=== PATIENT | female | born 1975 | race Caucasian/White ===

== ENCOUNTER 2025-02-12 17:04 | Outpatient (CLI) | payer OTHER, SELFPAY ==
--- NOTE | 2025-02-12 17:20 | CRLHL7_ITS ---
For Patients: As a result of the Cures Act, medical imaging exams and procedure reports are released immediately into your electronic medical record. You may view this report before your referring provider. If you have questions, please contact your health care provider. INDICATION: BILATERAL SCREENING MAMMOGRAM, ASYMPTOMATIC 49 Y/O FEMALE COMPARISON: 09/01/2022 TECHNIQUE: Digital mammogram in CC and MLO projections including computer-aided detection (CAD) and tomosynthesis. BREAST COMPOSITION: There are scattered areas of fibroglandular density. FINDINGS: No suspicious findings. ASSESSMENT: BI-RADS 1 Negative RECOMMENDATION: Annual screening mammogram. A lay language report of this examination will be provided to the patient. Dictated by: Anthony Jackson MD @ 02/15/2025 09:20:22 (Electronically Signed)
--- OUTSIDE RECORDS SUMMARY | 2025-02-13 00:48 | XMS_ITS | Encounter Summary ---
Author Organization [facility] Address [address] [place] [address]. [place] [address] Care Team Providers Care Desk Monitor Name Role Phone Coming Ivelisse Acuna MD Primary Care Provid er Coming Ivelisse Acuna MD Unavailable [phone]- [phone] Wilbert Peña MD Unavailable Encounter Details Date Type Department Care Team (Late st Contact Info) Description 08/09/2023 [facility] [address] [address] [place] Social History Tobacco Use Types Packs/Day Years Used Date Smoking Tobacco: Never Smokeless Tobacco: Never Alcohol Use Standard Drinks/Week Comments Yes 0 (1 standard drink = 0.6 oz pur e alcohol) occa Social Connection and Isolat ion Panel [NHANES] Answer Date Recorded In a typical week, how many times do you talk on the phone with family, friends, or neighbors? More than three times a week 08/25/2022 How often do you get togethe r with friends or relatives? Once a week 08/25/2022 How often do you attend chur ch or latter-day services? Never 08/25/2022 Do you belong to any clubs o r organizations such as sikh groups, unions, fraternal or athletic groups, or school groups? Yes 08/25/2022 Attends Club or Organization Meetings Not on jannette e 08/25/2022 Are you , , di vorced, , never , or living with a partner? 08/25/2022 AUDIT-C Answer Date Recorded Q1: How often do you have a drink containing alc ohol? Monthly or less 08/25/2022 Q2: How many drinks containi ng alcohol do you have on a typical day when you are drinking? 1 or 2 08/25/2022 Q3: How often do you have si x or more drinks on one occasion? Never 08/25/2022 Overall Financial Resource Strain (CARDIA) Answe r Date Recorded How hard is it for you to pa y for the very basics like food, housing, medical care, and heating? Not hard at all 08/25/2022 PHQ-2 Answer Date Recorded PHQ-2 Score 0 08/02/2023 [facility] - Occupational Stress Questionnaire Answer Date Recorded Do you feel stress - tense, restless, nervous, or anxious, or unable to sleep at night because your mind is troubled all the time - these days? Only a little 08/25/2022 Exercise Vital Sign Answer Date Recorde d On average, how many days pe r week do you engage in moderate to strenuous exercise (like a brisk walk)? 0 days 08/25/2022 On average, how many minutes do you engage in exercise at this level? 0 min 08/25/2022 Hunger Vital Sign Answer Date Recorded Within the past 12 months, y ou worried that your food would run out before you got the money to buy more. Never true 08/25/19 23 Within the past 12 months, t he food you bought just didn't last and you didn't have money to get more. Never true 08/25/2022 PRAPARE - Transportation Answer Date Re corded In the past 12 months, has l ack of transportation kept you from medical appointments or from getting medications? No 11/2022 In the past 12 months, has l ack of transportation kept you from meetings, work, or from getting things needed for daily living? No 08/25/2022 Housing Stability Vital Sign Answer Saul e Recorded In the last 12 months, was t here a time when you were not able to pay the mortgage or rent on time? No 08/25/2022 Number of Places Lived in the Last Year Not on f ile 08/25/2022 In the last 12 months, was t here a time when you did not have a steady place to sleep or slept in a senior care (including now)? 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
--- OUTSIDE RECORDS SUMMARY | 2025-02-13 00:48 | XMS_ITS | Encounter Summary ---
Author Organization [facility] Address [address] [place] [address]. [place] [address] Care Team Providers Care Signal Integrity Engineer Name Role Phone Coming Ivelisse Acuna MD Primary Care Provid er Coming Ivelisse Acuna MD Unavailable [phone] Wilbert Peña MD Unavailable Encounter Details Date Type Department Care Team (Late st Contact Info) Description 06/04/2024 [facility] Medical Advice Initial Department [place] [facility] Social History Tobacco Use Types Packs/Day Years [...] often do you attend chur ch or congregation services? Never 08/25/2022 Do you belong to any clubs o r organizations such as druze groups, unions, fraternal or athletic groups, or [...] Answer Date Recorded PHQ-2 Score 0 08/02/2023 [facility] - Occupational Stress [...] place to sleep or slept in a [facility] (including now)? 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
--- OUTSIDE RECORDS SUMMARY | 2025-02-13 00:48 | XMS_ITS | Encounter Summary ---
Author Organization [facility] Address [address] [place] [address]. [place] [address] Care Team Providers Care Communications Representative Name Role Phone Coming Ivelisse Acuna MD Primary Care Provid er Coming Ivelisse Acuna MD Unavailable [phone]- [phone] Wilbert Peña MD Unavailable Encounter Details Date [...] often do you attend chur ch or moravian services? Never 08/25/2022 Do you belong to any clubs o r organizations such as faith groups, unions, fraternal or athletic groups, or [...] place to sleep or slept in a jail (including now)? 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
--- OUTSIDE RECORDS SUMMARY | 2025-02-13 00:48 | XMS_ITS | Clinical Summary ---
Author Organization [facility] Address Formerly [facility] [place] [address] Care Team Providers Care Hardscape Foreman Name Role Phone Olivia Schwarz MD Primary Care Provider [phone]- [phone] Allergies Active Allergy Reactions Criticality Noted Date Comments Kiwi Laryngospasm 03/10/2010 Medications multivitamin (MVI) tablet Take 1 Tablet by mouth once daily. 0 06/22/2021 Active meclizine (ANTIVERT) 25 mg tabletIndication s:Motion sickness, sequela TAKE 1/2 TO 1 TABLET BY MOUTH THREE TIMES A DAY NEEDED FOR MOTION SICKNESS. 15 tablet. 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 Immunizations Immunization Administration Dates Next Due COVID-19 vaccine (IntroMaps NTech 30mcg/0.3mL) RACHNA CROSS 06/22/2021,12/04/2020,11/13/2020 DT (Age < 7 years) 01/11/2005 Influenza Intradermal PF 18-64 yrs 06/19/2012, Influenza, IIV3 (Age >=3 years) 07/04/2014 Influenza, IIV4 09/01/2022,,06/05/2019,2016 Influenza, IIV4 (=>6mos) MDV 06/23/2020,06/27/20 18 Td (Age >=7 Years) 06/22/2021 Tdap 08/11/2010 Tuberculin (PPD) 04/12/2003 Family History Medical History Relation Name Comments Diabetes Father Heart Disease Father Hypertension Father Heart Disease Maternal Grandfather Diabetes Mother Relation Name Status Comments Father Maternal Grandfather Mother Alive Social History Tobacco Use Types Packs/Day Years Used Date Smoking Tobacco: Never Smokeless Tobacco: Never Tobacco Cessation:Counseling Given: Yes Alcohol Use Standard Drinks/Week Comments Yes 6.7 (1 standard drink = 0.6 oz p ure alcohol) 2-3 drinks per month PHQ-2 Answer Date Recorded PHQ-2 TOTAL SCORE 0 12/10/2020 Social Connections Answer Date Recorded Frequency of Communication with Friends and Fami ly Not on file 08/16/2023 Financial Resource Strain Answer Date R ecorded Difficulty of Paying Living Expenses 3 08/12/2022 Difficulty of Paying Living Expenses Not on file 08/12/2022 Food Insecurity Answer Date Recorded Worried About Running Out of Food in the Last Ye ar 1 08/12/2022 Transportation Needs Answer Date Record ed Lack of Transportation (Medical) 1 08/12/2022 Housing Stability Answer Date Recorded Unable to Pay for Housing in the Last Year 1 08/12/2022 Comments No Sex and Gender Information Value Date Recorded Sex Assigned at Female 11/12/2020 10:25 AM CDT Legal Sex Female 5:42 AM 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 OPERATOR Gender Identity Female 11/12/2020 10:25 AM CDT Sexual Orientation Straight 11/12/2020 10 :25 AM CDT 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 Not on file Not o n file Obstetrics History Para Term AB IAB SAB Ectopic Multiple Livin g Live Births 1 1 1 Date Outcome GA Total Labor Labor/2nd/3rd Weight Sex Type Anes PTL Anu A1 A5 Name Clin Term Last Filed Vital Signs Vital Sign Reading Time Taken Comments Blood Pressure 132/88 08/12/2022 1:53 PM 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 OPERATOR Pulse 96 08/12/2022 1:53 PM 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 OPERATOR Temperature 36.6 C (97.8 F) 06/16/2022 2:40 PM CDT Respiratory Rate 16 06/16/2022 2:40 PM CDT Oxygen Saturation 99% 08/12/2022 1:53 PM 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 OPERATOR Inhaled Oxygen Concentration - - Weight 119.9 kg (264 lb 6.4 oz) 08/12/2022 1:53 PM 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 OPERATOR Height 164 cm (5' 4.57) 08/12/2022 1:53 PM 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 OPERATOR Body Mass Index 44.59 08/12/2022 1:53 PM 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 OPERATOR Plan of Treatment Health Maintenance Due Date Last Done Comments HIV for age 15-65 1991 Hepatitis C screening for age 18-79 1994 Hepatitis B series for 19+ (1 of 3 - 19+ 3-dose series) 1995 Colonoscopy through age 75 2021 Mammogram for age 45-75 2021 03/23/2017 Depression screening for age 12+ 12/10/2021 12/10/2020, 06/05/2019, 11/22/2018, Additional history exists Pap test for age 21-65 06/05/2022 9, 06/05/2019, 08/04/2016, Additional history exists BMI (ht and wt on same day) for age 18+ 08/12/2023 08/12/2022, 06/22/2021, 12/10/2020, Additional history exists COVID-19 vaccine series ( season) 2024 09/01/2022, 06/22/2021, 12/04/2020, Additional history exists Influenza Vaccine (Season Ended) 2025 09/01/2022, 05/31/2021, 06/23/2020, Additional history exists Lipids for age 45-75 04/29/2027 04/29/2022, 09/03/2016, 09/12/2013, Additional history exists Tetanus booster 06/22/2031 06/22/2021, 08/11/2010 Tdap Completed 08/11/2010 Pneumococcal series for age 6-49 Aged Out No longer eligible based on patient's age to complete this topic Procedures Procedure Name Priority Date/Time Associated Diagnosis Comments LIPID PANEL W REFLEX MEASURED LDL Routine 04/29/2022 4:04 PM CDT Screening for lipid disorders MUCK MINER BLASTING THIN PREP PAP SCREEN IMAGED Routine 06/05/2019 4:30 PM CDT Cervical cancer screening XR MAMMO BILAT SCREENING Routine 03/23/2017 11:19 AM CDT Visit for screening mammogram from Last 3 Months or Most Recently Relevant to Health Maintenance Results * LIPID PANEL W REFLEX MEASURED LDL [[id number]] (04/29/2022 4:04 PM CDT) CHOLESTEROL,TOTAL 179 100 - 199 mg/dL 04/30/2022 6:01 PM CDT [facility] TR[facility] LAB[facility] TRIGLYCERIDES 69 <150 mg/dL 04/30/2022 6:01 PM CDT [facility] HDL CHOLESTEROL 46 >40 mg/dL 6:01 PM CDT [facility] NON-HDL CHOLESTEROL 133 <145 mg/dl 04/30/2022 6:01 PM CDT [facility] CHOL/HDL RATIO 3.89 <4.50 04/30/2022 6:01 PM CDT [facility] LDL CHOLESTEROL 119 <=130 mg/dL 04/30/2022 6:01 PM CDT [facility] VLDL CHOLESTEROL 14 <=30 mg/dL 04/30/2022 6:01 PM CDT [facility] TR[facility] PROVIDER ORDERED STATUS RANDOM 04/30/2022 6:01 PM CDT [facility] Blood BLOOD SPECIMEN / Unknown Venipuncture / Unknown 04/29/2022 4:04 PM CDT 04/29/2022 4:05 PM CDT us Adei Abhilashra DO CHEMISTRY Final Result [facility] [address] [place] [address], [place] * MUCK MINER BLASTING THIN PREP PAP SCREEN IMAGED (06/05/2019 4:30 PM CDT) Case Report Gynecologic Cytology Report Case: [id number] Authorizing Provider: Anthony Low MD Collected: 06/05/2019 1630 Ordering Location: [facility] Received: 06/05/2019 1654 Clinic First Screen: Jorge Montoya Specimen: MUCK MINER BLASTING ThinPrep Vial Screening, Cervical 06/16/2019 10:59 AM CDT [facility] INTERPRETATION/ RESULT NEGATIVE FOR INTRAEPITHELIAL LESION OR MALIGNANCY (NIL) (none) 06/16/2019 10:59 AM CDT [facility] [employer] [facility] EN[facility] LAB[facility]ORY at 1059 CDT SPECIMEN ADEQUACY Satisfactory for evaluation No endocervical component seen 06/16/2019 10:59 AM CDT [facility] [employer] [facility] LAB[facility] HPV REQUEST HPV if ASCUS 06/16/2019 10:59 AM CDT [facility] Date of LMP 05/26/2019 06/16/2019 10:59 AM CDT [facility] [employer] [facility] Last Pap Date 08/04/16 06/16/2019 10:59 AM CDT [facility] ENTRAL LAB[facility] Last Pap Result NIL 9 10:59 AM CDT [facility] [employer] [facility] ENTRAL LAB[facility]ATORY Abnormal Pap or [place] Bx in last 5 years No 06/16/2019 10:59 AM CDT [facility] [employer] [facility] EN[facility]AL LAB[facility]ORY Menstrual Status Regular Periods 06/16/2019 10:59 AM CDT [facility] [employer] [facility] [place] Bx Done Today No 06/16/2019 10:59 AM CDT [facility] [employer] [facility] Additional Information None given 06/16/2019 10:59 AM CDT [facility] [employer] [facility] ENTRAL LAB[facility]ORY Automated Review Successful 06/16/2019 10:59 AM CDT [facility] [employer] [facility] ENTRAL LAB[facility]ORY Comment:Specimen processed s uccessfully by automated wheel tuner device, ThinPrep Imaging System, [employer] Note The pap test is a screening technique, not a diagnostic procedure. It is used primarily to screen for squamous cancers and precursor lesions. Published studies have shown that it is subject to both false negative and false positive results. The pap test should not be used as the sole means to diagnose or exclude pre-malignant and malignant lesions. Cytology is screened and interpreted at [facility] - [address], [place] [address] and [facility] - [address]; [place] [address] and [facility] - [address]; [place] [address] and [facility] [address]; [place] [address] 06/16/2019 10:59 AM CDT [facility] ENTRAL LABORATORY Other (Cervical) Non-Blood / Unknown 06/05/2019 4:30 PM CDT 06/05/2019 4:54 PM CDT Anthony Low MD PATHOLOGY/CYTOLOGY Final R esult Performing Organization Address City/State/[facility] Co de Phone Number [facility] [address] [place] [address], [place] * XR MAMMO BILAT SCREENING (03/23/2017 11:19 AM CDT) Anatomical Region Laterality Modality BREASTS, Breast Left, Breast Right Bilateral Mammography Impressions 03/23/2017 12:39 PM CDT There is no radiographic evidence for malignancy. Recommend annual mammograms. A lay language report of this examination will be provided to the patient. MAMMOGRAM ASSESSMENT: ACR 1 Negative Narrative 03/23/2017 12:39 PM CDT XR MAMMO BILAT SCREENING [[id number]] CLINICAL HISTORY: This is an asymptomatic 41 y.o. patient. INDICATION FOR EXAM: Mammogram Screening. TECHNIQUE: CC & MLO views were obtained. This digital study was evaluated with the assistance of Computer-Aided Detection. COMPARISON FILM: This is a baseline study. FINDINGS: Mammographically, the breast tissue has scattered fibroglandular densities. There are no dominant masses, suspicious micro calcifications or areas of architectural distortion. us Anthony Low MD MAMMO Final Resu lt from Last 3 Months or Most Recently Relevant to Health Maintenance Care Teams Hardscape Foreman Relationship Specialty Start Date End Date Olivia Schwarz MD [address] [place] [address] PCP - General Family Practice 12/10/20
--- OUTSIDE RECORDS SUMMARY | 2025-02-13 00:48 | XMS_ITS | Clinical Summary ---
Author Organization [facility] Address [address] [place] [address] Care Team Providers Care Mechanical Designer Name Role Phone Ivelisse Ambriz MD Primary Care Provid er Ivelisse Ambriz MD Unavailable +1- [phone] Allergies Active Allergy Reactions Criticality Noted Date Comments Kiwi Itching,Rash Medium 09/01/2022 Rash on throat and tongue Medications Vitamin D, Cholecalciferol, 25 MCG (1000 UT) TABS Active meclizine (ANTIVERT) 25 MG tabletIndication s:H/O motion sickness Take 1 tablet (25 mg) by mouth 3 times daily as needed for dizziness, nausea or other (motion sickness). 30 tablet 1 05/15/2024 Active Active Problems Problem Noted Date Diagnosed Date ANDREA (obstructive sleep apnea)- moderate (AHI 24) 01/10/2023 Overview (01/10/2023): Home Sleep Apnea Testing - 10/18/22: 265 lbs: AHI 24/hr. AHI was 32 per hour supine, 11 per hour prone, 16 per hour on left side, and 7 per hour on right side. Oxygen Marquis of 79%. Baseline 96%. Sp02 =< 88% for 4 minutes. She slept on her back (50%), prone (2%), left (11%) and right (19%) sides. 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 Plan: Pap/HPV due 05/202209/01/22 NIL pap, neg HPV. Plan cotest in 3 years. *After excision or ablation for MICHAEL 2+, cotest in 6 months, then cotest annually x 3, then cotest every 3 years for at least 25 years. As cervical cancer risk remains above general population levels, continued screening for as long as the pt remains in good health is acceptable. (2019 ASCCP guideline). Any abnormal pap or + HR HPV test within the 25 years warrants a colposcopy.* (2019 ASCCP advisor answer). 2019 ASCCP guidelines Page 104 bullet 8: New evidence indicates that risk remains elevated for at least 25 years, with no evidence that treated patients ever returnto risk levels compatible with 5-year intervals. Morbid obesity 09/01/2022 Immunizations Immunization Administration Dates Next Due COVID-19 Bivalent 12+ (Pfizer) 09/01/2022 COVID-19 MONOVALENT 12+ (Pfizer) 06/22/2021,11/20,11/13/2020 DT (PEDS <7y) 01/11/2005 Influenza (IIV3) PF 07/04/2014 Influenza (intradermal) 06/19/2012,06/03/2011 Influenza Vaccine >6 months,quad, PF 06/2023,05/31/2021,06/05/2019,2016 Influenza Vaccine, 6+MO IM (QUADRIVALENT W/PRESERVATIVES) 06/23/2020,06/27/2018 Mantoux Tuberculin Skin Test 04/12/2003 TDAP (Adacel,Boostrix) 08/11/2010 Td (Adult), Adsorbed 06/22/2021 Family History Medical History Relation Comments Anxiety Disorder Father Diabetes Father Hyperlipidemia Father Hypertension Father Obesity Father Substance Abuse Father Asthma Mother Diabetes Mother Hyperlipidemia Mother Hypertension Mother Obesity Mother Thyroid Disease Mother Colon Cancer No family hx of Relation Status Comments Father Mother Social History Tobacco Use Types Packs/Day Years Used Date Smoking Tobacco: Never Smokeless Tobacco: Never Tobacco Cessation:Counseling Given: Not Answered Alcohol Use Standard Drinks/Week Comments Yes 0 [...] often do you attend chur ch or restorationism services? 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 Not on file Not on file Last Filed Vital Signs Vital Sign Reading Time Taken Comments Blood Pressure 117/74 08/02/2023 10:09 AM TENNIS BALL COVERER HAND Pulse 82 08/02/2023 10:09 AM TENNIS BALL COVERER HAND Temperature 36.7 C (98 F) 03/16/2023 10:16 AM CDT Respiratory Rate 16 03/16/2023 10:16 AM CDT Oxygen Saturation 98% 03/16/2023 10:16 AM CDT Inhaled Oxygen Concentration - - Weight 108 kg (238 lb) 08/02/2023 10:09 AM TENNIS BALL COVERER HAND Height 160 cm (5' 3) 08/02/2023 10:09 AM TENNIS BALL COVERER HAND Body Mass Index 42.16 08/02/2023 10:09 AM TENNIS BALL COVERER HAND Plan of Treatment Health Maintenance Due Date Last Done Comments CT COLONOGRAPHY 1975 DIABETES SCREENING 1975 FIT 1975 FLEX SIG 1975 sDNA (Cologuard) 1976 HIV SCREENING 1991 HEPATITIS C SCREENING 1994 HEPATITIS B VACCINE (1 of 3 - 19+ 3-dose series) 1995 LIPID 2016 ANNUAL REVIEW OF HM ORDERS 09/01/2023 09/01/2022 YEARLY PREVENTIVE VISIT 09/01/2023 09/01/2022, 06/22 COVID-19 VACCINE ( season) 2024 09/01/2022, 06/22/2021, 12/04/2020, Additional history exists PHQ-2 (once per calendar year) 2024 08/02/2023, 01/10/2023, 09/01/2022 MAMMO SCREENING 09/01/2024 09/01/2022, 09/2016, 03/23/2017 INFLUENZA VACCINE (Season Ended) 2025 09/01/2022, 05/31/2021, 06/23/2020, Additional history exists HPV FOLLOW-UP 09/01/2025 09/01/2022 PAP FOLLOW-UP 09/01/2025 09/01/2022, 06/05/2019 ZOSTER VACCINE (1 of 2) 2026 ADVANCE CARE PLANNING 09/01/2027 09/01/2022 DTAP/TDAP/TD VACCINE (3 - Td or Tdap) 06/22/2031 06/22/2021, 08/11/2010 COLONOSCOPY 12/30/2032 12/30/2022, 12/30/2022 COLORECTAL CANCER SCREENING 12/30/2032 PAP Discontinued 09/01/2022, 06/05/2019 HPV VACCINE Aged Out No longer eligi ble based on patient's age to complete this topic MENINGITIS VACCINE Aged Out No longer eligible based on patient's age to complete this topic PNEUMOCOCCAL VACCINE: PEDIATRICS (0 to 5 YEARS) AND AT-RISK PATIENTS (6 to 49 YEARS) Aged Out No longer eligible based on patient's age to complete this topic Procedures Procedure Name Priority Date/Time Associated Diagnosis Comments COLONOSCOPY Routine 12/30/2022 9:42 AM CDT MA SCREENING BILATERAL W/ GAVINO Routine 09/01/2022 2:55 PM TENNIS BALL COVERER HAND Visit for screening mammogram HPV HIGH RISK TYPES DNA CERVICAL Routine 09/01/2022 1:56 PM TENNIS BALL COVERER HAND Cervical cancer screening GYNECOLOGIC CYTOLOGY Routine 09/01/2022 1:56 PM TENNIS BALL COVERER HAND Cervical cancer screening from Last 3 Months or Most Recently Relevant to Health Maintenance Results * COLONOSCOPY (12/30/2022 9:42 AM CDT) COLONOSCOPY [facility] Patient Name: Guerline Brunson Procedure Date: 12/30/2022 9:42 AM Date of : 1975 Admit Type: Outpatient Age: 47 Gender: Female Attending MD: MEGHAN BLACKWOOD MD, Total Sedation Time: 15 min Instrument Name: 256 - Pediatric Colonoscope Procedure: Colonoscopy Indications: Screening for colorectal malignant neoplasm, This is the patient's first colonoscopy Providers: MEGHAN BLACKWOOD MD (Doctor) Referring MD: IVELISSE SHARMA (Referring MD) Medicines: Fentanyl 100 micrograms IV, Midazolam 2 mg IV Procedure: Pre-Anesthesia Assessment: - Prior to the procedure, a History and Physical was performed, and patient medications and allergies were reviewed. The patient is competent. The risks and benefits of the procedure and the sedation options and risks were discussed with the patient. All questions were answered and informed consent was obtained. Patient identification and proposed procedure were verified. Mental Status Examination: alert and oriented. Airway Examination: normal oropharyngeal airway and neck mobility. Respiratory Examination: clear to auscultation. CV Examination: regular rate and rhythm. ASA Grade Assessment: II - A patient with mild systemic disease. After reviewing the risks and benefits, the patient was deemed in satisfactory condition to undergo the procedure. The anesthesia plan was to use moderate sedation / analgesia (conscious sedation). Immediately prior to administration of medications, the patient was re-assessed for adequacy to receive sedatives. The heart rate, respiratory rate, oxygen saturations, blood pressure, adequacy of pulmonary ventilation, and response to care were monitored throughout the procedure. The physical status of the patient was re-assessed after the procedure. After obtaining informed consent, the colonoscope was passed under direct vision. Throughout the procedure, the patient's blood pressure, pulse, and oxygen saturations were monitored continuously. The Olympus Pediatric Colonoscope Model # [id number]-CV466M, Endora # 256, SN # [id number] was introduced through the anus and advanced to the cecum, identified by appendiceal orifice and ileocecal valve. The colonoscopy was performed with ease. The patient tolerated the procedure well. The quality of the bowel preparation was excellent. Findings: The perianal and digital rectal examinations were normal. Multiple diverticula were found in the sigmoid colon. The exam was otherwise without abnormality on direct and retroflexion views. Impression: - Diverticulosis in the sigmoid colon. - The examination was otherwise normal on direct and retroflexion views. - No specimens collected. Recommendation: - High fiber diet indefinitely. - Repeat colonoscopy in 10 years for screening purposes. - If a first degree family member under the age of 60 develops colon cancer or high risk polyps (>1cm, villous or high grade dysplasia pathology) requiring frequent colonoscopy, repeat colonoscopy every 5 years Procedure Code(s): --- Professional --- 05744, Colonoscopy, flexible; diagnostic, including collection of specimen(s) by brushing or washing, when performed (separate procedure) Diagnosis Code(s): --- Professional --- Z12.11, Encounter for screening for malignant neoplasm of colon K57.30, Diverticulosis of large intestine without perforation or abscess without bleeding CPT copyright 2020 [employer]. All rights reserved. The codes documented in this report are preliminary and upon chemical compounder helper review may be revised to meet current compliance requirements. _ MEGHAN BLACKWOOD MD 12/30/2022 10:17:52 AM I was physically present for the entire viewing portion of the exam. MEGHAN BLACKWOOD MD Number of Addenda: 0 Note Initiated On: 12/30/2022 9:42 AM Procedure Date: 12/30/2022 9:42:06 AM Scope Withdrawal Time: 0 hours 8 minutes 7 seconds Total Procedure Duration: 0 hours 16 minutes 14 seconds Estimated Blood Loss: Scope In: 9:55:38 AM Scope Out: 10:11:52 AM RADIOLOGY RESULTS 12/30/2022 9:42 AM CDT November Liya Sharma MD PROCEDURES Dayanara l Result RADIOLOGY RESULTS * MA Screen Bilateral w/Gavino (09/01/2022 2:55 PM TENNIS BALL COVERER HAND) Anatomical Region Laterality Modality Breast Bilateral Mammography Impressions 09/06/2022 3:17 PM TENNIS BALL COVERER HAND IMPRESSION: ACR BI-RADS Category 1: Negative RECOMMENDED FOLLOW-UP: Annual routine screening mammogram The results and recommendations of this examination will be communicated to the patient. Boogie Roman MD Based on the pre-exam history questionnaire and medical history, there may be increased risk for developing breast cancer or other cancers in the future. The contact for scheduling cancer genetic counseling for risk assessment and possible genetic testing and supplemental screening is: [phone]. Narrative 09/06/2022 3:17 PM TENNIS BALL COVERER HAND BILATERAL FULL FIELD DIGITAL SCREENING MAMMOGRAM WITH TOMOSYNTHESIS Performed on: 09/01/22 Compared to: 03/23/2017 Technique: This study was evaluated with the assistance of Computer-Aided Detection. Breast Tomosynthesis was used in interpretation. Findings: The breasts have scattered areas of fibroglandular density. There is no radiographic evidence of malignancy. us Screening Mammogram Selfreferral IMG MAMMOGRAPHY ORDERABLES Final Result * Pap screen with HPV - recommended age 30 - 65 years (09/01/2022 1:56 PM TENNIS BALL COVERER HAND) Interpretation Negative for Intraepithelial Lesion or Malignancy (NILM) 09/06/2022 8:02 AM TENNIS BALL COVERER HAND [facility] at 0802 TENNIS BALL COVERER HAND Comment Papanicolaou Test Limitations: Cervical cytology is a screening test with limited sensitivity, and regular screening is critical for cancer prevention. Pap tests are primarily effective for the diagnosis/prevent ion of squamous cell carcinoma, not adenocarcinoma or other cancers. 09/06/2022 8:02 AM TENNIS BALL COVERER HAND [facility] Specimen Adequacy Satisfactory for evaluation, endocervical/lopez sformation zone component present 09/06/2022 8:02 AM TENNIS BALL COVERER [facility] Clinical Information none 09/06/2022 8:02 AM TENNIS BALL COVERER [facility] LMP/Menopause Date 08/24/2022 09/06/2022 8:02 AM TENNIS BALL COVERER [facility] Reflex Testing Yes regardless of result 09/06/2022 8:02 AM TENNIS BALL COVERER HAND [facility] Previous Abnormal? No[History of MICHAEL III 09/06/2022 8:02 AM TENNIS BALL COVERER HAND [facility] Performing Labs The technical component of this testing was completed at [facility] 09/06/2022 8:02 AM TENNIS BALL COVERER HAND [facility] Brushing CERVIX UTERI STRUCTURE / Unknown Non-blood Collection / Unknown 09/01/2022 1:56 PM TENNIS BALL COVERER HAND 09/01/2022 2:31 PM TENNIS BALL COVERER HAND November Liya WHATLEY - HUSAM damian Result [facility] [address] [facility], [address] [address], [facility] [phone] * HPV High Risk Types DNA Cervical (09/01/2022 1:56 PM TENNIS BALL COVERER HAND) Other HR HPV Negative Negative 09/06/2022 3:46 PM TENNIS BALL COVERER HAND [facility] HPV16 DNA Negative Negative 09/06/2022 3:46 PM TENNIS BALL COVERER HAND [facility] HPV18 DNA Negative Negative 09/06/2022 3:46 PM TENNIS BALL COVERER HAND [facility] FINAL DIAGNOSIS This patient's sample is negative for HPV DNA. This test was developed and its performance characteristics determined by the [facility], [facility] Laboratory. It has not been cleared or approved by the FDA. The laboratory is regulated under CLIA as qualified to perform high-complexity testing. This test is used for clinical purposes. It should not be regarded as investigational or for research. METHODOLOGY: The Adelso Elizabeth 4800 system uses automated extraction, simultaneous amplification of HPV (L1 region) and beta-globin, followed by real time detection of fluorescent labeled HPV and beta globin using specific oligonucleotide probes. The test specifically identifies types HPV 16 DNA and HPV 18 DNA while concurrently detecting the rest of the high risk types (31, 33, 35, 39, 45, 51, 52, 56, 58, 59, 66 or 68). COMMENTS: This test is not intended for use as a screening device for woman under age 30 with normal cervical cytology. Results should be correlated with cytologic and histologic findings. Close clinical followup is recommended. 09/06/2022 3:46 PM TENNIS BALL COVERER HAND [facility] Brushing CERVIX UTERI STRUCTURE / Unknown Non-blood Collection / Unknown 09/01/2022 1:56 PM TENNIS BALL COVERER HAND 09/06/2022 9:47 AM TENNIS BALL COVERER HAND November Liya Sharma MD LAB - BLOOD ORDERABL ES Final Result [facility] [address] [facility] [address], [address] [place] [address], [facility] [phone] from Last 3 Months or Most Recently Relevant to Health Maintenance Insurance [facility] CORE [facility] CORE Care Teams Mechanical Designer Relationship Specialty Start [place] [address] [place] [address] PCP - General Family Medicine 09/01/22 [place] [address] [place] [address] Assigned PCP 08/11/22
--- OUTSIDE RECORDS SUMMARY | 2025-02-13 00:48 | XMS_ITS | Encounter Summary ---
Author Organization [facility] Address [address] [place] [address]. [place] [address] Care Team Providers Care Sifter And Miller Name Role Phone Coming Ivelisse Acuna MD Primary Care Provid er Ivelisse Ambriz MD Unavailable +1- [phone] Wilbert Peña MD Unavailable Encounter Details Date Type Department Care Team (Late st Contact Info) Description 02/14/2023 [facility] [place] [facility] [address] [phone] Crista Chin CMA Social History Tobacco Use Types Packs/Day Years [...] 08/25/2022 How often do you attend chur or synagogue services? Never 08/25/2022 Do you belong to any clubs o r organizations such as protestant groups, unions, fraternal or athletic groups, or [...] PHQ-2 Answer Date Recorded PHQ-2 Score 0 [facility] - Occupational Stress Questionnaire Answer Date Recorded [...] place to sleep or slept in a care home (including now)? 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
--- OUTSIDE RECORDS SUMMARY | 2025-02-13 00:48 | XMS_ITS | Encounter Summary ---
Author Organization [facility] Address [address] [place] [address]. [place] [address] Care Team Providers Care System Development Engineer Name Role Phone Coming Ivelisse Acuna MD Primary Care Provid er Coming Ivelisse Acuna MD Unavailable [phone]- [phone] Wilbert Peña MD Unavailable Encounter Details Date Type Department Care Team (Late st Contact Info) Description 10/02/2022 [facility] [place] [facility] [address] [place] [phone] Renetta Marquez Social History Tobacco Use Types Packs/Day Years Used Date Smoking Tobacco: Never Smokeless Tobacco: Never Alcohol Use Standard Drinks/Week Comments Yes 0 (1 standard drink = 0.6 oz pur e alcohol) Social Connection and Isolat ion Panel [NHANES] Answer Date Recorded In a typical week, how many times do you talk on the phone with family, friends, or neighbors? More than three times a week 08/25/2022 How often do you get togethe r with friends or relatives? Once a week 08/25/2022 How often do you attend chur ch or mandaen services? 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 Unable to assess 09/07/2022 2:23 PM CAFETERIA OPERATOR documented as of this encounter Plan of Treatment Not on file documented as of this encounter Visit Diagnoses Not on filedocumented in this encounter Care Teams System Development Engineer Relationship Specialty Start [place] [address] [place] [address] PCP - General Family Medicine 09/01/22 [place] [address] [place] [address] Assigned PCP 08/11/22 Wilbert Peña [place] [address] [place] [address] Assigned Sleep Provider 09/11/22 documented as of this encounter
--- OUTSIDE RECORDS SUMMARY | 2025-02-13 00:49 | XMS_ITS | Encounter Summary ---
Author Organization [facility] Address [address] [place] [address] Care Team Providers Care Genetic Engineer Name Role Phone Coming Ivelisse Acuna MD Primary Care Provid er Ivelisse Ambriz MD Unavailable [phone]- [phone] Wilbert Peña MD Unavailable Encounter Details Date Type Department Care Team (Late st Contact Info) Description 09/07/2022 [facility] Advice [facility] Centralized Scheduling [address] [place] [phone] Rose Petty Social History Tobacco Use Types Packs/Day Years [...] often do you attend chur ch or yarsanism services? Never 08/25/2022 Do you belong to [...] Answer Date Recorded PHQ-2 Score 0 09/01/2022 [facility] Occupat ional Health - Occupational [...] place to sleep or slept in a snf (including now)? 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 Unable to assess 09/07/2022 2:23 PM BASKETBALL PLAYER documented as of this encounter Plan of Treatment Not on file documented as of this encounter Visit Diagnoses Not on filedocumented in this encounter Care Teams Genetic Engineer Relationship Specialty Start [place] [address] [place] [address] PCP - General Family Medicine 09/01/22 [place] [address] [place] [address] Assigned PCP 08/11/22 Wiblert Peña [place] [address] [place] [address] Assigned Sleep Provider 09/11/22 documented as of this encounter
== END 2025-02-12 17:05 | disposition home or self-care (01) ==
LOC: MAMMO 17:05
PROVIDERS: Visit Provider Obstetrics & Gynecology
DX: Z12.31 Encounter for screening mammogram for malignant neoplasm of breast (principal)
CPT/HCPCS: 77063; 77067